=== PATIENT | female | born 1980 | race Caucasian/White ===

== ENCOUNTER 2016-05-28 09:59 | Outpatient (CLI) | payer OTHER ==
--- NOTE | 2016-05-28 17:10 | DIAGNOSTIC IMAGING REPORT ---
PROCEDURE: US ABDOMEN ULTRASOUND-COMPLETE INDICATION: RT SIDED ABD PAIN TECHNIQUE: Hutton scale and color Doppler sonographic images of the abdomen were obtained. COMPARISON: None. FINDINGS: The patient ate prior to exam and returned 8 hours later. Normal gallbladder without gallstones. Normal CBD measures 5.8 mm. Negative Alexis's sign. Normal liver and spleen. Normal pancreas as visualized. Aorta and IVC are patent. Normal hepatopetal flow. Normal kidneys. Right kidney measures 11.9 cm and left kidney 12.3 cm. IMPRESSION: 1. Normal abdominal ultrasound
== END 2016-05-28 23:00 ==
LOC: US SRH 09:59
DX: R10.9 Unspecified abdominal pain (principal)

== ENCOUNTER 2016-06-07 11:24 | Emergency (ER) | payer OTHER ==
--- NOTE | 2016-06-07 15:14 | ED CLINICAL REPORT ---
Clinical Report - Physicians/Mid Levels [facility] [address] [place] [place] [address] 06/07/2016 11:24 Patient: WILFRID TRINIDAD Time Seen: 11:34. Arrived- By private vehicle. Historian- patient. HISTORY OF PRESENT ILLNESS Is still present. Chief Complaint: HEADACHE. This started yesterday. It was abrupt in onset. Onset during light activity. It is described as similar to previous headaches and "pain". Located in the right hemicranial region. At its maximum, severity described as severe. When seen in the E.D., severity described as severe. There were preceding symptoms of scotoma and typical aura. She has had photophobia, nausea and vomiting. No numbness or weakness. Similar symptoms previously: Many times. REVIEW OF SYSTEMS No chills, fever, sweats, calf pain or chest pain. No cough, difficulty breathing, pedal edema, palpitations or black stools. No bloody stools, constipation, diarrhea or urinary problems. All systems otherwise negative, except as recorded above. SOCIAL HISTORY Never smoker. No alcohol use or drug use. FAMILY HISTORY Denies family medical history. ADDITIONAL NOTES The nursing notes have been reviewed. PHYSICAL EXAM Vital Signs: 06/07/2016 11:27 BP: 144/81. HR: 92. RR: 18. O2 saturation: 100%. Temp: 98.3 F. Pain level now: 10/10. Have been reviewed. Appearance: Alert. Eyes: Photophobia present. Pupils equal, round and reactive to light. ENT: Pharynx normal. Neck: Normal inspection. Neck supple. No meningeal signs or carotid bruit. CVS: Normal heart rate and rhythm. Heart sounds normal. Respiratory: No respiratory distress. Breath sounds normal. Abdomen: Soft and nontender. No organomegaly. Back: Normal inspection. Skin: Skin warm and dry. Normal skin color. No rash. Normal skin turgor. Extremities: Extremities exhibit normal ROM. No lower extremity edema. Neuro: Alert. Mood/affect normal. Speech normal. Cranial nerves normal (as tested). No cerebellar findings. No motor deficit. No sensory deficit. PROGRESS AND PROCEDURES Course of Care: Symptoms better. Vital signs have been reviewed. Physical exam findings are improved. Patient/family counseled. Old medical records reviewed. Disposition: Discharged. Condition: stable. CLINICAL IMPRESSION Recurrent migraine headache. INSTRUCTIONS No driving or operating machinery while taking medication. Sedative medication was given during your visit. Warnings: Further evaluation is necessary. GENERAL WARNINGS: Return or contact your physician immediately if your condition worsens or changes unexpectedly, if not improving as expected, or if other problems arise. Your Current Medications: CONTINUE TAKING THE FOLLOWING MEDICATIONS: Acyclovir Oral. Cyclobenzaprine HCl Oral. Imitrex Oral. Toradol*. Zofran ODT Oral. Follow-up: Follow up with your doctor NILSON ANDRADE in four days. Call for the next available appointment. Follow up with a neurologist- as recommended by your primary care physician. Understanding of the discharge instructions verbalized by patient. (Electronically signed by Gordy Garcia MD 06/07/2016 18:04)
--- NOTE | 2016-06-07 15:14 | ED CLINICAL REPORT ---
Clinical Report - Physicians/Mid Levels [facility] [address] [address] 06/07/2016 11:24 Patient: WILFRID TRINIDAD Time Seen: 11:34. Arrived- By private vehicle. Historian- patient. HISTORY OF PRESENT ILLNESS Is still present. Chief Complaint: HEADACHE. This started yesterday. It was abrupt in onset. Onset during light activity. It is described as similar to previous headaches and "pain". Located in the right hemicranial region. At its maximum, severity described as severe. When seen in the E.D., severity described as severe. There were preceding symptoms of scotoma and typical aura. She has had photophobia, nausea and vomiting. No numbness or weakness. Similar symptoms previously: Many times. REVIEW OF SYSTEMS No chills, fever, sweats, calf pain or chest pain. No cough, difficulty breathing, pedal edema, palpitations or black stools. No bloody stools, constipation, diarrhea or urinary problems. All systems otherwise negative, except as recorded above. SOCIAL HISTORY Never smoker. No alcohol use or drug use. FAMILY HISTORY Denies family medical history. ADDITIONAL NOTES The nursing notes have been reviewed. PHYSICAL EXAM Vital Signs: 06/07/2016 11:27 BP: 144/81. HR: 92. RR: 18. O2 saturation: 100%. Temp: 98.3 F. Pain level now: 10/10. Have been reviewed. Appearance: Alert. Eyes: Photophobia present. Pupils equal, round and reactive to light. ENT: Pharynx normal. Neck: Normal inspection. Neck supple. No meningeal signs or carotid bruit. CVS: Normal heart rate and rhythm. Heart sounds normal. Respiratory: No respiratory distress. Breath sounds normal. Abdomen: Soft and nontender. No organomegaly. Back: Normal inspection. Skin: Skin warm and dry. Normal skin color. No rash. Normal skin turgor. Extremities: Extremities exhibit normal ROM. No lower extremity edema. Neuro: Alert. Mood/affect normal. Speech normal. Cranial nerves normal (as tested). No cerebellar findings. No motor deficit. No sensory deficit. PROGRESS AND PROCEDURES Course of Care: Symptoms better. Vital signs have been reviewed. Physical exam findings are improved. Patient/family counseled. Old medical records reviewed. Disposition: Discharged. Condition: stable. CLINICAL IMPRESSION Recurrent migraine headache. INSTRUCTIONS No driving or operating machinery while taking medication. Sedative medication was given during your visit. Warnings: Further evaluation is necessary. GENERAL WARNINGS: Return or contact your physician immediately if your condition worsens or changes unexpectedly, if not improving as expected, or if other problems arise. Your Current Medications: CONTINUE TAKING THE FOLLOWING MEDICATIONS: Acyclovir Oral. Cyclobenzaprine HCl Oral. Imitrex Oral. Toradol*. Zofran ODT Oral. Follow-up: Follow up with your doctor NILSON ANDRADE in four days. Call for the next available appointment. Follow up with a neurologist- as recommended by your primary care physician. Understanding of the discharge instructions verbalized by patient. (Electronically signed by Gordy Garcia MD 06/07/2016 18:04)
--- NOTE | 2016-06-07 15:15 | ED ORDER SUMMARY ---
..... Patient: WILFRID TRINIDAD OrderSheet [facility] VisitID: [id number] [place] [address] 35y, F Registration Date/Time: 06/07/2016 ORDER SHEET Weight: 101.1 kg (stated) Allergies: CT Contrast, Haldol, Natalol, Topamax, Amoxicillin GENERAL ORDERS: MEDICATION ORDERS: Toradol IM 60 mg (NOW) (13:03 06/07/2016 Sukhdev MODI) (Ack 13:07 JBoardley R.N.) (13:18 JBoardley R.N.) Promethazine IM 25 mg (NOW) (13:03 06/07/2016 Sukhdev MODI) (Ack 13:07 JBoardley R.N.) (13:18 JBoardley R.N.) Zofran ODT PO 4 mg (NOW) (13:03 06/07/2016 Sukhdev MODI) (Ack 13:07 JBoardley R.N.) (13:19 JBoardley R.N.) IV FLUIDS: ORDER SHEET NOTES: [Electronically signed by Magnus Quiroga R.N. (15:13 06/07/2016)] [Electronically signed by Gordy Garcia MD (18:04 06/07/2016)] [Electronically locked/signed by Magnus Quiroga R.N. (15:13 06/07/2016)]
--- NOTE | 2016-06-07 15:15 | ED NURSING NOTES ---
Clinical Report - Nurses [facility] [address] [place] [address] 06/07/2016 11:24 Patient: WILFRID TRINIDAD TRIAGE Triage time 11:28. Acuity: LEVEL 4. Chief Complaint: MIGRAINE HEADACHE. 11:27 06/07/16. 11:06/07/16. Alert. SEPSIS SCREEN: Sepsis Screen. Negative (no infection suspected/documented). KERRY COMA SCORE: [place] Coma Scale: 15- eyes open spontaneously (4); best verbal response- oriented x 4 (5); best motor response- obeys commands (6). --11:32 Magnus Quiroga R.N. 11:27 06/07/16. BP: 144/81. HR: 92. RR: 18. O2 saturation: 100% on room air. Temp: 98.3 F (oral). Pain level now: 11/16. --11:32 Magnus Quiroga R.N. 13:43 06/07/16. BP: 144/77. --13:43 Corbin Arizmendi R.N. Weight: 101.1 kg stated. Height/Length: 67 inches Per Patient. BMI: 34.9. --11:28 Magnus Quiroga R.N. Medications Imitrex Oral. --11:31 Magnus Quiroga R.N. Toradol. --11:31 Magnus Quiroga R.N. Cyclobenzaprine HCl Oral. --11:32 Magnus Quiroga R.N. Zofran ODT Oral. --11:32 Magnus Quiroga R.N. Acyclovir Oral. --11:32 Magnus Quiroga R.N. Allergies CT Contrast. Haldol. ("violent shaking") Natalol. Topamax. --11:31 Magnus Quiroga R.N. Amoxicillin. --11:31 Magnus Quiroga R.N. History Arrived by private vehicle. Historian: patient. Accompanied by family. Primary physician ([facility], [facility]). 11:06/07/16. This started yesterday. She has had nausea. Treatment [employer]: (0300-Toradol 30mg, 0900-Imitrex, Zofran 8mg). PAST MEDICAL HX: Immunizations: up-to-date. Last normal menstrual period- 3 weeks ago. SOCIAL HX: Never smoker. No alcohol use or drug use. No recent travel. No known contact with a sick individual. ABUSE ASSESSMENT: No report of abuse. FALL RISK ASSESSMENT: Fall risk assessment completed. No fall risk identified. NUTRITIONAL RISK ASSESSMENT: The nutritional risk assessment revealed no deficiencies. FUNCTIONAL ASSESSMENT: Functional assessment: no impairments noted. LEARNING NEEDS ASSESSMENT: The learning needs assessment revealed no barriers. SKIN INTEGRITY ASSESSMENT: Skin integrity risk assessment completed. No skin integrity risk identified. --11:32 Magnus Quiroga R.N. PROBLEMS: UTI - Urinary Tract Infection. Hypertension. Headache. Tension-Type Headache. Chronic Headache. Migraine Headache. Dental Pain. --11:32 Magnus Quiroga R.N. Tension-Type Headache [RuleOut]. --11:32 Magnus Quiroga R.N. ADDITIONAL SURGERIES: Dental Surgery. --11:32 Magnus Quiroga R.N. Assessment 11:06/07/16. --11:32 Magnus Quiroga R.N. Interventions 11:06/07/16. 11:06/07/16. ID and allergy band on patient. To treatment room. --11:32 Magnus Quiroga R.N. PHYSICAL ASSESSMENT 11:06/07/16. Ambulatory to room. GENERAL / NEURO / PSYCH: Alert. Oriented X 4. Appears in pain. Speech within normal limits. HEENT: No signs of head trauma. RESPIRATORY: Respirations not labored. CVS: Capillary refill less than 2 seconds. SKIN: Skin is warm and dry. --11:30 Magnus Quiroga R.N. NURSING PROGRESS NOTES 11:06/07/16. Patient gowned. Reassurance given. Lights dimmed. Call light placed in reach. Side rails up x 2. Bed placed in lowest position. Brakes of bed on. Patient ready for evaluation- chart flagged and notification provided. --11:30 Magnus Quiroga R.N. 12:20 06/07/16. Patient informed about reason for wait and about plan of care. --12:20 Magnus Quiroga R.N. 12:20 06/07/16. Patient waiting for evaluation. --12:20 Magnus Quiroga R.N. 12:39 06/07/16. Patient waiting for evaluation. --12:39 Magnus Quiroga R.N. 12:39 06/07/16. Patient and family informed about reason for wait and about plan of care. --12:39 Magnus Quiroga R.N. 13:00 06/07/16. ( Pt given ice pack after triage and again now). --13:00 Magnus Quiroga R.N. 13:06/07/16. ( MD at bedside). --13:00 Magnus Quiroga R.N. 13:18 06/07/2016 Toradol (Ketorolac Tromethamine) IM 60 mg given. Given in the left ventral gluteus. Allergies verified and confirmed 5 rights. --13:18 Magnus Quiroga R.N. 13:18 06/07/2016 Promethazine IM 25 mg given. Given in the right ventral gluteus. Allergies verified, confirmed 5 rights and sedative warning given to the patient. --13:18 Magnus Quiroga R.N. 13:19 06/07/2016 Zofran ODT (Ondansetron) PO 4 mg given. Allergies verified and confirmed 5 rights. --13:19 Magnus Quiroga R.N. 13:06/07/16. --13:19 Magnus Quiroga R.N. 13:06/07/16. BP: 134/79. HR: 77. RR: 13. O2 saturation: 99% on room air. --13:19 Magnus Quiroga R.N. 13:06/07/16. Patient informed about reason for wait and about plan of care. --13:19 Magnus Quiroga R.N. 14:06/07/16. ( Pt is ready for DC). --14:02 Magnus Quiroga R.N. 14:02 06/07/16. Reassessment after medication administered. She has had no adverse reaction. Overall patient status is improved- she states feels better. --14:02 Magnus Quiroga R.N. DISPOSITION / DISCHARGE 14:24 06/07/16. Condition at departure: improved. The goals identified in the patient's plan of care were met. No learning barriers present. Discharge instructions provided and reviewed with the patient and spouse. Reviewed warnings. Reviewed medication(s). Treatments reviewed. Patient and spouse verbalized understanding. Written instructions provided in Slovak. The patient was discharged by the physician. She was discharged home and accompanied by family. She left the Emergency Department ambulatory and via private vehicle. Family member driving. FALL RISK ASSESSMENT: Fall risk assessment completed. No fall risk identified. --14:24 Magnus Quiroga R.N. 14:24 06/07/16. BP: 133/47. HR: 71. RR: 14. O2 saturation: 99% on room air. Temp: 98 F (oral). Pain level now: 03/19. --14:24 Magnus Quiroga R.N. 14:24 06/07/16. Departure time: 14:24. --14:25 Magnus Quiroga R.N. Locked/Released at 06/07/2016 15:13 by Magnus Quiroga R.N.
--- NOTE | 2016-06-07 15:15 | ED NURSING NOTES ---
Clinical Report - Nurses [facility] [address] [place] [address] 06/07/2016 11:24 Patient: WILFRID TRINIDAD TRIAGE Triage time 11:28. Acuity: LEVEL 4. Chief Complaint: MIGRAINE HEADACHE. 11:27 06/07/16. 11:06/07/16. Alert. SEPSIS SCREEN: Sepsis Screen. Negative (no infection suspected/documented). KERRY COMA SCORE: [place] Coma Scale: 15- eyes open spontaneously (4); best verbal response- oriented x 4 (5); best motor response- obeys commands (6). --11:32 Magnus Quiroga R.N. 11:27 06/07/16. BP: 144/81. HR: 92. RR: 18. O2 saturation: 100% on room air. Temp: 98.3 F (oral). Pain level now: 11/16. --11:32 Magnus Quiroga R.N. 13:43 06/07/16. BP: 144/77. --13:43 Corbin Arizmendi R.N. Weight: 101.1 kg stated. Height/Length: 67 inches Per Patient. BMI: 34.9. --11:28 Magnus Quiroga R.N. Medications Imitrex Oral. --11:31 Magnus Quiroga R.N. Toradol. --11:31 Magnus Quiroga R.N. Cyclobenzaprine HCl Oral. --11:32 Magnus Quiroga R.N. Zofran ODT Oral. --11:32 Magnus Quiroga R.N. Acyclovir Oral. --11:32 Magnus Quiroga R.N. Allergies CT Contrast. Haldol. ("violent shaking") Natalol. Topamax. --11:31 Magnus Quiroga R.N. Amoxicillin. --11:31 Magnus Quiroga R.N. History Arrived by private vehicle. Historian: patient. Accompanied by family. Primary physician ([facility], [facility]). 11:06/07/16. This started yesterday. She has had nausea. Treatment [employer]ER: (0300-Toradol 30mg, 0900-Imitrex, Zofran 8mg). PAST MEDICAL HX: Immunizations: up-to-date. Last normal menstrual period- 3 weeks ago. SOCIAL HX: Never smoker. No alcohol use or drug use. No recent travel. No known contact with a sick individual. ABUSE ASSESSMENT: No report of abuse. FALL RISK ASSESSMENT: Fall risk assessment completed. No fall risk identified. NUTRITIONAL RISK ASSESSMENT: The nutritional risk assessment revealed no deficiencies. FUNCTIONAL ASSESSMENT: Functional assessment: no impairments noted. LEARNING NEEDS ASSESSMENT: The learning needs assessment revealed no barriers. SKIN INTEGRITY ASSESSMENT: Skin integrity risk assessment completed. No skin integrity risk identified. --11:32 Magnus Quiroga R.N. PROBLEMS: UTI - Urinary Tract Infection. Hypertension. Headache. Tension-Type Headache. Chronic Headache. Migraine Headache. Dental Pain. --11:32 Magnus Quiroga R.N. Tension-Type Headache [RuleOut]. --11:32 Magnus Quiroga R.N. ADDITIONAL SURGERIES: Dental Surgery. --11:32 Magnus Quiroga R.N. Assessment 11:06/07/16. --11:32 Magnus Quiroga R.N. Interventions 11:06/07/16. 11:06/07/16. ID and allergy band on patient. To treatment room. --11:32 Magnus Quiroga R.N. PHYSICAL ASSESSMENT 11:06/07/16. Ambulatory to room. GENERAL / NEURO / PSYCH: Alert. Oriented X 4. Appears in pain. Speech within normal limits. HEENT: No signs of head trauma. RESPIRATORY: Respirations not labored. CVS: Capillary refill less than 2 seconds. SKIN: Skin is warm and dry. --11:30 Magnus Quiroga R.N. NURSING PROGRESS NOTES 11:06/07/16. Patient gowned. Reassurance given. Lights dimmed. Call light placed in reach. Side rails up x 2. Bed placed in lowest position. Brakes of bed on. Patient ready for evaluation- chart flagged and notification provided. --11:30 Magnus Quiroga R.N. 12:20 06/07/16. Patient informed about reason for wait and about plan of care. --12:20 Magnus Quiroga R.N. 12:20 06/07/16. Patient waiting for evaluation. --12:20 Magnus Quiroga R.N. 12:39 06/07/16. Patient waiting for evaluation. --12:39 Magnus Quiroga R.N. 12:39 06/07/16. Patient and family informed about reason for wait and about plan of care. --12:39 Magnus Quiroga R.N. 13:00 06/07/16. ( Pt given ice pack after triage and again now). --13:00 Magnus Quiroga R.N. 13:06/07/16. ( MD at bedside). --13:00 Magnus Quiroga R.N. 13:18 06/07/2016 Toradol (Ketorolac Tromethamine) IM 60 mg given. Given in the left ventral gluteus. Allergies verified and confirmed 5 rights. --13:18 Magnus Quiroga R.N. 13:18 06/07/2016 Promethazine IM 25 mg given. Given in the right ventral gluteus. Allergies verified, confirmed 5 rights and sedative warning given to the patient. --13:18 Magnus Quiroga R.N. 13:19 06/07/2016 Zofran ODT (Ondansetron) PO 4 mg given. Allergies verified and confirmed 5 rights. --13:19 Magnus Quiroga R.N. 13:06/07/16. --13:19 Magnus Quiroga R.N. 13:06/07/16. BP: 134/79. HR: 77. RR: 13. O2 saturation: 99% on room air. --13:19 Magnus Quiroga R.N. 13:06/07/16. Patient informed about reason for wait and about plan of care. --13:19 Magnus Quiroga R.N. 14:06/07/16. ( Pt is ready for DC). --14:02 Magnus Quiroga R.N. 14:02 06/07/16. Reassessment after medication administered. She has had no adverse reaction. Overall patient status is improved- she states feels better. --14:02 Magnus Quiroga R.N. DISPOSITION / DISCHARGE 14:24 06/07/16. Condition at departure: improved. The goals identified in the patient's plan of care were met. No learning barriers present. Discharge instructions provided and reviewed with the patient and spouse. Reviewed warnings. Reviewed medication(s). Treatments reviewed. Patient and spouse verbalized understanding. Written instructions provided in Indonesian. The patient was discharged by the physician. She was discharged home and accompanied by family. She left the Emergency Department ambulatory and via private vehicle. Family member driving. FALL RISK ASSESSMENT: Fall risk assessment completed. No fall risk identified. --14:24 Magnus Quiroga R.N. 14:24 06/07/16. BP: 133/47. HR: 71. RR: 14. O2 saturation: 99% on room air. Temp: 98 F (oral). Pain level now: 03/19. --14:24 Magnus Quiroga R.N. 14:24 06/07/16. Departure time: 14:24. --14:25 Magnus Quiroga R.N. Locked/Released at 06/07/2016 15:13 by Magnus Quiroga R.N.
--- NOTE | 2016-06-07 15:15 | ED ORDER SUMMARY ---
..... Patient: WILFRID TRINIDAD OrderSheet [facility] VisitID: [id number] [place] [address] 35y, F Registration Date/Time: 06/07/2016 ORDER SHEET Weight: 101.1 kg (stated) Allergies: CT Contrast, Haldol, Natalol, Topamax, Amoxicillin GENERAL ORDERS: MEDICATION ORDERS: Toradol IM 60 mg (NOW) (13:03 06/07/2016 Sukhdev MODI) (Ack 13:07 JBoardley R.N.) (13:18 JBoardley R.N.) Promethazine IM 25 mg (NOW) (13:03 06/07/2016 Sukhdev MODI) (Ack 13:07 JBoardley R.N.) (13:18 JBoardley R.N.) Zofran ODT PO 4 mg (NOW) (13:03 06/07/2016 Sukhdev MODI) (Ack 13:07 JBoardley R.N.) (13:19 JBoardley R.N.) IV FLUIDS: ORDER SHEET NOTES: [Electronically signed by Magnus Quiroga R.N. (15:13 06/07/2016)] [Electronically signed by Gordy Garcia MD (18:04 06/07/2016)] [Electronically locked/signed by Magnus Quiroga R.N. (15:13 06/07/2016)]
--- NOTE | 2016-06-07 18:05 | ED MAR SUMMARY ---
..... Medication Administration Record [facility] [address] [place] [address] Patient: WILFRID TRINIDAD Visit ID: [id number] 35y, F Weight: 101.1 kg Height/Length: 67 in BMI: 34.9 ALLERGIES: Amoxicillin, CT Contrast, Haldol, Natalol, Topamax Given 13:06/07/2016 Magnus Quiroga R.N. Medication Administered: TORADOL [IM] (KETOROLAC TROMETHAMINE), Dose: 60 mg IM. Medication Ordered: Toradol IM 60 mg (NOW). Given 13:06/07/2016 Magnus Quiroga R.N. Medication Administered: PROMETHAZINE [IM], Dose: 25 mg IM. Medication Ordered: Promethazine IM 25 mg (NOW). Given 13:06/07/2016 Magnus Quiroga R.N. Medication Administered: ZOFRAN ODT [PO] (ONDANSETRON), Dose: 4 mg PO. Medication Ordered: Zofran ODT PO 4 mg (NOW).
--- NOTE | 2016-06-07 18:05 | ED MED RECONCILIATION SUMMARY ---
Patient: WILFRID TRINIDAD Medication Reconciliation Report [facility] VisitID: [id number] [address] [place] [address] 35y, F Registration Date/Time: 06/07/2016 Weight: 101.1 kg Height/Length: 67 in. BMI: 34.9 ALLERGIES: Amoxicillin, CT Contrast, Haldol, Natalol, Topamax The patient's Home Medications are listed below: CONTINUE TAKING THE FOLLOWING MEDICATIONS: Acyclovir Oral Cyclobenzaprine HCl Oral Imitrex Oral Toradol Zofran ODT Oral The source(s) of the original Home Medication information: Not obtained. The following Medications were given to the patient in the Emergency Department: Toradol [IM] IM 60 mg, administered: 06/07/2016 1:18:00 PM Promethazine [IM] IM 25 mg, administered: 06/07/2016 1:18:00 PM Zofran ODT [PO] PO 4 mg, administered: 06/07/2016 1:19:00 PM The following Medications were prescribed to the patient: None.
--- NOTE | 2016-06-07 18:05 | ED DISCHARGE INSTRUCTIONS ---
Patient: WILFRID TRINIDAD General Instructions [facility] VisitID: [id number] [place] [address] 35y, F Registration Date/Time: 06/07/2016 Recurrent migraine headache. INSTRUCTIONS No driving or operating machinery while taking medication. Sedative medication was given during your visit. Warnings: Further evaluation is necessary. GENERAL WARNINGS: Return or contact your physician immediately if your condition worsens or changes unexpectedly, if not improving as expected, or if other problems arise. Your Current Medications: CONTINUE TAKING THE FOLLOWING MEDICATIONS: Acyclovir Oral. Cyclobenzaprine HCl Oral. Imitrex Oral. Toradol*. Zofran ODT Oral. Follow-up: Follow up with your doctor NILSON ANDRADE in four days. Call for the next available appointment. Follow up with a neurologist- as recommended by your primary care physician. Understanding of the discharge instructions verbalized by patient. ADDITIONAL INFORMATION Migraine Headache Migraine headaches are related to changes in blood flow to the brain. This causes throbbing or constant pain on one or both sides of the head. The pain may last from a few hours to several days. There is usually nausea, vomiting, sensitivity to light and sound, and blurred vision. A migraine attack may be triggered by emotional stress, hormone changes during the menstrual cycle, oral contraceptives, alcohol use, certain foods containing tyramine, eye strain, weather changes, missing meals, or too little or too much sleep. Home Care For This Headache: 1) If you were given pain medicine for this headache, do not drive yourself home . Arrange for a ride, instead. When you get home, try to sleep. You should feel much better when you wake up. 2) Migraine headaches may improve with an ice pack on the forehead or at the base of the skull. Heat to the back of your neck may relieve any neck spasm. 3) Drink only clear liquids or eat a very light diet to avoid nausea/vomiting until symptoms improve. Preventing Future Headaches: 1) Pay attention to those factors that seem to trigger your headache. Try to avoid them when you can. If you have frequent headaches, it is useful to keep a diary of what you were doing, feeling or eating in the hours before each attack. Show this to your doctor to help find the cause of your headaches. a) If you feel that stress is a factor in your headaches, look at the sources of stress in your life. Find ways to release the build-up of those stresses by using regular exercise, relaxation methods (yoga, meditation), bio-feedback or simply taking time-out for yourself. For more information about this, consult your doctor or go to a local bookstore and review books and tapes on this subject. b) Tyramine is a substance present in the following foods : chocolate, yogurt, all cheeses except cottage cheese and cream cheese. smoked or pickled fish and meat (including garcia, caviar, bologna, pepperoni, salami), liver, avocados, bananas, figs, raisins, and red wine. Be aware that these foods may trigger a migraine in some persons. Try taking these foods out of your diet for 1-2 months to see if this reduces headache frequency. Treating Future Attacks: 1) At the first sign of a headache, take time out if possible. Find a quiet, dark, comfortable place to sit or lie down. Let yourself relax or sleep. 2) An ice pack on the forehead or area of greatest pain may help. If you are having muscle spasm and tightness of the neck, a heating pad and massage to this area may be helpful. 3) If you have been prescribed a medicine to stop a migraine headache, use this at the very first warning sign of the headache (aura or initial pain) for best results. Follow Up with your doctor if the headache is not better within the next 24 hours. If you have frequent headaches you should discuss a treatment plan with your primary care doctor. Ask if you can have medicine to take at home the next time you get a bad headache. Poorly controlled chronic headaches may require a referral to a neurologist (headache specialist). Get Prompt Medical Attention if any of the following occur: Your head pain gets worse, or does not improve within 24 hours Repeated vomiting (cant keep liquids down) Sinus or ear or throat pain (not already reported) Fever of 100.4 F (38 C) or higher, or as directed by your healthcare provider Stiff neck Extreme drowsiness, confusion or fainting Dizziness, vertigo (dizziness with spinning sensation) Weakness of an arm or leg or one side of the face Difficulty with speech or vision You have been given the following additional information: Headache, Migraine (Classical) No driving or operating machinery while taking medication. Sedative medication was given during your visit. (Electronically signed by Gordy Garcia MD 06/07/2016 18:04)
--- NOTE | 2016-06-07 18:05 | ED MED RECONCILIATION SUMMARY ---
Patient: WILFRID TRINIDAD Medication Reconciliation Report [facility] VisitID: [id number] [address] [place] [address] 35y, F Registration Date/Time: 06/07/2016 Weight: 101.1 kg Height/Length: 67 in. BMI: 34.9 ALLERGIES: Amoxicillin, CT Contrast, Haldol, Natalol, Topamax The patient's Home Medications are listed below: CONTINUE TAKING THE FOLLOWING MEDICATIONS: Acyclovir Oral Cyclobenzaprine HCl Oral Imitrex Oral Toradol Zofran ODT Oral The source(s) of the original Home Medication information: Not obtained. The following Medications were given to the patient in the Emergency Department: Toradol [IM] IM 60 mg, administered: 06/07/2016 1:18:00 PM Promethazine [IM] IM 25 mg, administered: 06/07/2016 1:18:00 PM Zofran ODT [PO] PO 4 mg, administered: 06/07/2016 1:19:00 PM The following Medications were prescribed to the patient: None.
--- NOTE | 2016-06-07 18:05 | ED MAR SUMMARY ---
..... Medication Administration Record [facility] [address] [place] [address] Patient: WILFRID TRINIDAD Visit ID: [id number] 35y, F Weight: 101.1 kg Height/Length: 67 in BMI: 34.9 ALLERGIES: Amoxicillin, CT Contrast, Haldol, Natalol, Topamax Given 13:06/07/2016 Magnus Quiroga R.N. Medication Administered: TORADOL [IM] (KETOROLAC TROMETHAMINE), Dose: 60 mg IM. Medication Ordered: Toradol IM 60 mg (NOW). Given 13:06/07/2016 Magnus Quiroga R.N. Medication Administered: PROMETHAZINE [IM], Dose: 25 mg IM. Medication Ordered: Promethazine IM 25 mg (NOW). Given 13:06/07/2016 Magnus Quiroga R.N. Medication Administered: ZOFRAN ODT [PO] (ONDANSETRON), Dose: 4 mg PO. Medication Ordered: Zofran ODT PO 4 mg (NOW).
== END 2016-06-07 14:24 | disposition home or self-care (01) ==
LOC: ED SRH 11:24
DX: G43.709 Chronic migraine without aura, not intractable, without status migrainosus (principal)